=== PATIENT | male | born 1970 | race Caucasian/White ===

== ENCOUNTER 2019-05-15 19:42 | Inpatient (IN) | payer MEDICAID, MEDICARE ==
[~2019-05-15] VITALS: Ht 182.9 cm; Wt 143.7 kg
[2019-05-15] MEDS ORDERED: NS IV ONE (20:00)
[2019-05-15] MEDS ORDERED: DILUENT IV ONE (20:00)
[2019-05-15] MEDS ORDERED: ACETAMINOPHEN 325 MG TAB PO ONE (20:00)
[2019-05-15] MEDS ORDERED: ONDANSETRON 4MG/2ML VIAL (J2405) IV ONE (20:00)
[2019-05-15 20:22] LABS: BASO # 0.1 10^3/uL (0.0-0.2); BASO % 0.3 % (0.0-1.0); EOS # 0.1 10^3/uL (0.0-0.50); EOS % 0.3 % (0.0-3.0); HEMATOCRIT 46.5 % (42.0-52.0); LYMPH # 1.2 10^3/uL (1.5-4.5); LYMPH % 5.4 % (24.0-44.0); MEAN CORPUSCULAR HGB CONC 32.3 g/dl (32.0-36.5); MEAN CORPUSCULAR VOLUME 89.8 fl (80.0-96.0); MONO # 1.1 10^3/uL (0.0-0.8); MONO % 4.6 % (0.0-5.0); NEUTROPHILS # 20.2 10^3/uL (1.8-7.7); NEUTROPHILS % 88.8 % (36.0-66.0); PLATELET COUNT, AUTOMATED 298 10^3/uL (150-450); RED BLOOD COUNT 5.18 10^6/uL (4.30-6.10); WHITE BLOOD COUNT 22.8 10^3/uL (4.0-10.0)
[2019-05-15 20:36] LABS: ALBUMIN 3.8 GM/DL (3.2-5.2); ALT/SGPT 25 U/L (12-78); BILIRUBIN,DIRECT < 0.1 MG/DL (0.0-0.2); BILIRUBIN,TOTAL 0.3 MG/DL (0.2-1.0); TOTAL PROTEIN 7.8 GM/DL (6.4-8.2)
[2019-05-15 20:59] LABS: APPEARANCE, URINE CLEAR (CLEAR); BACTERIA, URINE AUTO NEGATIVE (NEGATIVE); BILIRUBIN, URINE AUTO NEGATIVE (NEGATIVE); BLOOD, URINE BLOOD 1+ (NEGATIVE); COLOR, URINE YELLOW (YELLOW); GLUCOSE, URINE (UA) AUTO NEGATIVE (NEGATIVE); KETONE, URINE AUTO NEGATIVE (NEGATIVE); LEUKOCYTE ESTERASE, URINE AUTO NEGATIVE (NEGATIVE); MUCUS, URINE SMALL (NEGATIVE); NITRITE, URINE AUTO NEGATIVE (NEGATIVE); PROTEIN, URINE AUTO NEGATIVE (NEGATIVE); RBC, URINE AUTO 4 /HPF (0-3); SPECIFIC GRAVITY URINE AUTO 1.015 (1.002-1.035); SQUAMOUS EPITHELIAL CELL UR AU 0 /HPF (0-6); UROBILINOGEN, URINE AUTO 0.2 mg/dL (0.0-2.0); WBC, URINE AUTO 2 /HPF (0-3)
[2019-05-15] MEDS: DOCUSATE SODIUM 100 MG CAP PO SCH (21:00)
[2019-05-15] MEDS ORDERED: PIPERACILLIN/TAZOBACTAM SOD 3.375 GM in D5W MINI-BAG PLUS 50 ML IV ONE (21:15)
[2019-05-15] MEDS ORDERED: ISOVUE-370 76% 100ML VIAL (Q9967) As Ordered ONE (22:02)
[2019-05-15] MEDS ORDERED: VANCOMYCIN HCL 1,000 MG, VIAL MATE ADAPTER 1 EACH in D5W 250 ML IV ONE (23:00)
[2019-05-15] MEDS ORDERED: ACET1TAB55 PO (23:07)
--- NOTE | 2019-05-15 23:47 | REPVR ---
EXAM: CT Abdomen and Pelvis With Contrast EXAM DATE/TIME: 05/15/2019 10:11 PM CLINICAL HISTORY: 48 years old, male; Abdominal pain; Generalized; Additional info: Fever, abd pain, eval for appy TECHNIQUE: Imaging protocol: Axial computed tomography images of the abdomen and pelvis with intravenous contrast. Coronal and sagittal reformatted images were created and reviewed. Radiation optimization: All CT scans at this facility use at least one of these dose optimization techniques: automated exposure control; mA and/or kV adjustment per patient size (includes targeted exams where dose is matched to clinical indication); or iterative reconstruction. Contrast material: ISOVUE 370;Contrast volume: 100 ml;Contrast route: IV; COMPARISON: CT ABD PELVIS W/O CONTRAST 12/20/2013 3:45 PM FINDINGS: Liver: Normal. No mass. Gallbladder and bile ducts: Normal. No calcified stones. No ductal dilation. Pancreas: Normal. No ductal dilation. Spleen: Normal. No splenomegaly. Adrenals: Normal. No mass. Kidneys and ureters: Normal. No hydronephrosis. Stomach and bowel: Scattered colonic diverticula without CT evidence of diverticulitis. No bowel dilatation or obstruction. Appendix: Normal appendix. Intraperitoneal space: Unremarkable. Vasculature: Normal. No abdominal aortic aneurysm. Lymph nodes: Multiple enlarged bilateral inguinal lymph nodes measuring up to 14 mm. Findings may represent inflammation versus infection. Bladder: Unremarkable as visualized. Reproductive: Unremarkable as visualized. Bones/joints: 6 lumbar vertebra with sacralization of L6. Bilateral pars interarticularis defects at L4 with mild anterolisthesis of L4 on L5 with mild central spinal canal stenosis and severe bilateral neural foraminal narrowing with possible impingement on the exiting bilateral nerve root she did. Soft tissues: Bilateral fat containing inguinal hernias. IMPRESSION: Normal appendix. Multiple enlarged bilateral inguinal lymph nodes measuring up to 14 mm. Findings may represent inflammation versus infection. Electronically signed by: Perla Norman On 05/15/2019 23:47:13 PM
[2019-05-16] MEDS ORDERED: NICOTINE POLACRILEX 2 MG GUM PO ONE
[2019-05-16] MEDS ORDERED: NICOTINE 21MG/24HR 1 EA TRANSDERMAL TD ONE
[2019-05-16] MEDS ORDERED: ACETAMINOPHEN TAB 650MG DOSE (2X325MG) PO PRN (01:15)
--- NOTE | 2019-05-16 01:40 | HPEPDOC ---
General Date of Admission 05/16/19 Date of Service: May 16, 2019 Chief Complaint The patient is a 48-year-old male admitted with a reason for visit of Abdominal Pain. Source: Patient History of Present Illness This is a 48 yo male with pmhx of htn and prediabetes which were dx last year, but patient has been none compliant with meds or follow up, who started having subjective fever today with nausea and dry heaves , as well as RUQ pain. Patient syncopized 2 days ago, but said he doesn't remember what happened. Currently patient said his abd pain and nausea have subsided. Patient has a burn from a muffler on his left wrist a few weeks ago which has been healing well. He also has erythema on his left leg which seems to be new, but patient doesn't remember when it started. Patient said he noticed he started a dry cough since yesterday as well. ROS - all 14 point ros negative except for what's stated in hpi Pmhx - htn and prediabetes social - smokes 1ppd for >40 yrs, smokes marijuana occasionally , used to use iv heroin- last use was 1 yr ago, denied drinking etoh surgical hx - none allergies - none home meds - none Physical exam Gen - Physical exam Gen: NAD, obese HEENT: normocephalic, atraumatic, no discharge from ears or nose, no orop haryngeal erythema or exudate, neck is supple, no lymphadenopathy, trachea midline CVS: RRR, normal S1n S2, no murmur, rubs, or gallops, ?nonpitting edema in legs, no jvd Resp: LCTAB, but decreased breath sounds in the left lower lung field, no rhonchi, wheezes or crackles Abd : soft nontender, normal bowel sounds, no rebound tenderness or guarding, obese abd , no roper sign or cva tenderness MSK: right leg erythema, warmth and swelling, no calf tenderness, full range of motion, strength 5/5, left arm burnt wound- healing, some erythema and warmth, but no tenderness. Neuro: AOAx3, no confusion, no focal deficit Psych: normal mood and affect, good judgment Assessment and plan Sepsis possibly 2/2 cellulitis -vitals signs are stable -ct abd did not show any sign of infection -s/p vanc and zosyn in ed -will c/w zosyn and vanc for now and can de-escalate when necessary. -f/u blood and Ucx -f/u cxr -f/u bmp, lactic acid and procal stat htn - not on meds - c/w monitor vital signs -vital signs q4h Prediabetes - f/u hba1c dvt ppx DNR/DNI - pt has molst form to fill, from home , no svc Home Medications Scheduled PRN Acetaminophen (Acetaminophen) 325 Mg Tablet, 325 MG PO Q4-6HP PRN for pain or fever, (Reported) Allergies Coded Allergies: No Known Allergies (Unverified , 05/15/19) A-FIB/CHADSVASC A-FIB History Current/History of A-Fib/PAF?: No Current PO Anticoag Therapy: No Age/Risk Factor Scoring CHADSVASC: CHADSVASC Response (Comments) Value Age Risk Factor Age < 65 years old 0 Gender Risk Factor Female 1 Hx of CHF No 0 Hx of HTN No 0 Hx of Stroke/TIA/or VTE No 0 Hx of Diabetes No 0 Hx of Vascular Disease No 0 Total 1 Treatment Treatment ordered: NONE Reason Anticoagulant not given: Not indicated/[id number] Vital Signs Vital Signs Date Time Temp Pulse Resp B/P (MAP) Pulse Ox O2 Delivery O2 Flow Rate FiO2 05/16/19 01:02 85 20 169/80 (109) 99 Room Air 05/15/19 23:37 98.8 Laboratory Data Labs 24H Laboratory Tests 2 05/15/19 20:01: Immature Granulocyte % (Auto) 0.6, White Blood Count 22.8H, Red Blood Count 5.18, Hemoglobin 15.0, Hematocrit 46.5, Mean Corpuscular Volume 89.8, Mean Corpuscular Hemoglobin 29.0, Mean Corpuscular Hemoglobin Concent 32.3, Red Cell Distribution Width 13.6, Platelet Count 298, Neutrophils (%) (Auto) 88.8H, Lymphocytes (%) (Auto) 5.4L, Monocytes (%) (Auto) 4.6, Eosinophils (%) (Auto) 0.3, Basophils (%) (Auto) 0.3, Neutrophils # (Auto) 20.2H, Lymphocytes # (Auto) 1.2L, Monocytes # (Auto) 1.1H, Eosinophils # (Auto) 0.1, Basophils # (Auto) 0.1, Nucleated Red Blood Cells % (auto) 0.0, Aspartate Amino Transf (AST/SGOT) 15, Alanine Aminotransferase (ALT/SGPT) 25, Alkaline Phosphatase 138H, Total Bilirubin 0.3, Direct Bilirubin < 0.1, Total Protein 7.8, Albumin 3.8, Albumin/Globulin Ratio 0.95L 05/15/19 20:02: Bedside Glucose (Misc Panel) 155H 05/15/19 20:16: POC Lactate (Misc Panel) 1.78 05/15/19 20:20: Urine Appearance CLEAR, Urine Color YELLOW, Urine pH 5.0, Urine Specific [place] 1.015, Urine Protein NEGATIVE, Urine Glucose (UA) NEGATIVE, Urine Ketones NEGATIVE, Urine Urobilinogen 0.2, Urine Bilirubin NEGATIVE, Urine Leukocyte Esterase NEGATIVE, Urine Blood 1+H, Urine Nitrite NEGATIVE, Urine WBC (Auto) 2, Urine RBC (Auto) 4H, Urine Hyaline Casts (Auto) 0, Urine Bacteria (Auto) NEGATIVE, Urine Squamous Epithelial Cells 0, Urine Mucus (Auto) SMALL, Urine Sperm (Auto) 05/15/19 20:22: POC Glucose (Misc Panel) 153H, POC Sodium (Misc Panel) 135L, POC Potassium (Misc Panel) 4.1, POC Chloride (Misc Panel) 101, POC Total CO2 (Misc Panel) 23.0, POC Blood Urea Nitrogen (Misc Panel 7L, POC Ionized Calcium (Misc Panel) 4.5, POC Creatinine (Misc Panel) 0.9, POC Hematocrit (Misc Panel) 48.0 CBC/BMP Laboratory Tests 05/15/19 20:01 Red Blood Count 5.18, Mean Corpuscular Volume 89.8, Mean Corpuscular Hemoglobin 29.0, Mean Corpuscular Hemoglobin Concent 32.3, Red Cell Distribution Width 13.6, Neutrophils (%) (Auto) 88.8 H, Lymphocytes (%) (Auto) 5.4 L, Monocytes (%) (Auto) 4.6, Eosinophils (%) (Auto) 0.3, Basophils (%) (Auto) 0.3, Neutrophils # (Auto) 20.2 H, Lymphocytes # (Auto) 1.2 L, Monocytes # (Auto) 1.1 H, Eosinophils # (Auto) 0.1, Basophils # (Auto) 0.1 Microbiology Microbiology 05/15/19 Blood Culture, Received Pending 05/15/19 Blood Culture, Received Pending 05/15/19 Urine Culture, Received Pending Plan / VTE VTE Prophylaxis Ordered?: Yes FREDY ARRIOLA MD May 16, 2019 01:40
[2019-05-16 02:39] LABS: BLOOD UREA NITROGEN 8 MG/DL (7-18); GLUCOSE, FASTING 147 MG/DL (70-100)
[2019-05-16 02:40] LABS: CALCIUM LEVEL 9.2 MG/DL (8.5-10.1); CARBON DIOXIDE LEVEL 27 MEQ/L (21-32); CHLORIDE LEVEL 104 MEQ/L (98-107); CREATININE FOR GFR 1.06 MG/DL (0.70-1.30); GLOMERULAR FILTRATION RATE > 60.0 (>60); POTASSIUM SERUM 4.3 MEQ/L (3.5-5.1); SODIUM LEVEL 138 MEQ/L (136-145)
[2019-05-16 03:25] VITALS: BP 148/70
[2019-05-16] MEDS: VANCOMYCIN HCL 1,000 MG, VIAL MATE ADAPTER 1 EACH in D5W 250 ML IV SCH ×2 (03:59→08:54)
[2019-05-16] MEDS ORDERED: PIPERACILLIN/TAZOBACTAM SOD 3.375 GM in D5W MINI-BAG PLUS 50 ML IV SCH (04:00)
[2019-05-16] MEDS ORDERED: HEPARIN SOD (PORCINE) 5000 UNITS/ML VIAL SC SCH (06:00)
[2019-05-16 06:18] LABS: HEMATOCRIT 43.6 % (42.0-52.0); HEMOGLOBIN 13.9 g/dl (13.5-17.5); MEAN CORPUSCULAR HEMOGLOBIN 29.3 pg (27.0-33.0); MEAN CORPUSCULAR HGB CONC 31.9 g/dl (32.0-36.5); MEAN CORPUSCULAR VOLUME 91.8 fl (80.0-96.0); PLATELET COUNT, AUTOMATED 279 10^3/uL (150-450); RED BLOOD COUNT 4.75 10^6/uL (4.30-6.10); WHITE BLOOD COUNT 16.2 10^3/uL (4.0-10.0)
[2019-05-16 06:34] LABS: HEMOGLOBIN A1c 8.2 %
[2019-05-16 06:45] LABS: ALBUMIN 3.3 GM/DL (3.2-5.2); ALT/SGPT 28 U/L (12-78); BILIRUBIN,TOTAL 0.2 MG/DL (0.2-1.0); BLOOD UREA NITROGEN 7 MG/DL (7-18); CALCIUM LEVEL 8.7 MG/DL (8.5-10.1); CARBON DIOXIDE LEVEL 29 MEQ/L (21-32); CHLORIDE LEVEL 106 MEQ/L (98-107); CREATININE FOR GFR 0.94 MG/DL (0.70-1.30); GLOMERULAR FILTRATION RATE > 60.0 (>60); GLUCOSE, FASTING 133 MG/DL (70-100); MAGNESIUM LEVEL 2.2 MG/DL (1.8-2.4); POTASSIUM SERUM 3.8 MEQ/L (3.5-5.1); SODIUM LEVEL 139 MEQ/L (136-145); TOTAL PROTEIN 7.3 GM/DL (6.4-8.2)
--- NOTE | 2019-05-16 07:32 | REP ---
Clinical: Sepsis. Technique: PA and lateral. Comparison: 02/03/2010. Findings: Mediastinum and cardiac silhouette are stable. Lung ravi demonstrate coarsened interstitial markings without focal consolidation, effusion, or pneumothorax. Skeletal structures are intact. Impression: Cannot exclude mild bronchitis. No focal consolidation or effusion. Electronically Signed by Angel Luis Najera MD 05/16/2019 07:24 A
[2019-05-16 08:00] VITALS: BP 142/64
[2019-05-16] MEDS: DOCUSATE SODIUM 100 MG CAP PO SCH (09:00)
--- NOTE | 2019-06-06 23:53 | DS.PDOC ---
Discharge Summary General Date of Admission May 16, 2019 at 01:02 Date of Discharge 05/17/19 Discharge Summary PROCEDURES PERFORMED DURING STAY: [None]. ADMITTING DIAGNOSES: 1. [left leg cellulitis]. DISCHARGE DIAGNOSES: 1. [left leg cellulitis, hypertension, diabetes mellitus type 2]. COMPLICATIONS/CHIEF COMPLAINT: Abdominal Pain,Fever,Leukocytosis. HISTORY OF PRESENT ILLNESS: [This is a 48 yo male with pmhx of htn and prediabetes which were dx last year, but patient has been none compliant with meds or follow up, who started having subjective fever today with nausea and dry heaves , as well as RUQ pain. Patient syncopized 2 days ago, but said he doesn't remember what happened. Currently patient said his abd pain and nausea have subsided. Patient has a burn from a muffler on his left wrist a few weeks ago which has been healing well. He also has erythema on his left leg which seems to be new, but patient doesn't remember when it started. Patient said he noticed he started a dry cough since yesterday as well. ]. HOSPITAL COURSE: Patient was admitted for left leg cellulitis and treatment of hypertension and DM2. Patient left AMA on 05/17/19. DISCHARGE MEDICATIONS: Please see below. ALLERGIES: Please see below. LABORATORY DATA: Please see below. IMAGING: [ NAME: YORDY MIGUEL DATE OF : 1970 AGE: 48 SEX: M REPORT #: [id number] ROOM: [facility] TECHNOLOGIST: [place] [id number] DOCTOR: FREDY ARRIOLA MD Ordered for Date&Time: 05/16/19 0151 cc: [~ rep ct ivnm] Service Date&Time: 05/16/19 0204 EXAMINATION REQUESTED: Chest, 2 view PA, Lat REASON FOR PATIENT VISIT: ABDOMINAL PAIN,FEVER,LEUKOCYTOSIS REASON FOR EXAM/COMMENT: sepsis Clinical: Sepsis. Technique: PA and lateral. Comparison: 02/03/2010. Findings: Mediastinum and cardiac silhouette are stable. Lung ravi demonstrate coarsened interstitial markings without focal consolidation, effusion, or pneumothorax. Skeletal structures are intact. Impression: Cannot exclude mild bronchitis. No focal consolidation or effusion. Electronically Signed by Angel Luis Najera MD 05/16/2019 07:24 A DD: Angel Luis Najera MD 05/16/19719 DT: Dieter 05/16/19723 DS: JANE 05/16/1972305/16/19723 NAME: YORDY MIGUEL DATE OF : 1970 BUSINESS NUMBER: [id number] AGE: 48 SEX: M REPORT #: [id number] ROOM: ED TECHNOLOGIST: BILLY DOCTOR: PATRICIA BRANCH NEON TECHNICIAN Ordered for Date&Time: 05/15/192112 cc: [~ rep ct ivnm] Service Date&Time: 05/15/192210 EXAMINATION REQUESTED: CT ABD/PEL W/IV CONTRAST ONLY REASON FOR PATIENT VISIT: ABDOMINAL PAIN REASON FOR EXAMINATION: fever, abd pain, eval for appy EXAM: CT Abdomen and Pelvis With Contrast EXAM DATE/TIME: 05/15/2019 10:11 PM CLINICAL HISTORY: 48 years old, male; Abdominal pain; Generalized; Additional info: Fever, abd pain, eval for appy TECHNIQUE: Imaging protocol: Axial computed tomography images of the abdomen and pelvis with intravenous contrast. Coronal and sagittal reformatted images were created and reviewed. Radiation optimization: All CT scans at this facility use at least one of these dose optimization techniques: automated exposure control; mA and/or kV adjustment per patient size (includes targeted exams where dose is matched to clinical indication); or iterative reconstruction. Contrast material: ISOVUE 370;Contrast volume: 100 ml;Contrast route: IV; COMPARISON: CT ABD PELVIS W/O CONTRAST 12/20/2013 3:45 PM FINDINGS: Liver: Normal. No mass. Gallbladder and bile ducts: Normal. No calcified stones. No ductal dilation. Pancreas: Normal. No ductal dilation. Spleen: Normal. No splenomegaly. Adrenals: Normal. No mass. Kidneys and ureters: Normal. No hydronephrosis. Stomach and bowel: Scattered colonic diverticula without CT evidence of diverticulitis. No bowel dilatation or obstruction. Appendix: Normal appendix. Intraperitoneal space: Unremarkable. Vasculature: Normal. No abdominal aortic aneurysm. Lymph nodes: Multiple enlarged bilateral inguinal lymph nodes measuring up to 14 mm. Findings may represent inflammation versus infection. Bladder: Unremarkable as visualized. Reproductive: Unremarkable as visualized. Bones/joints: 6 lumbar vertebra with sacralization of L6. Bilateral pars interarticularis defects at L4 with mild anterolisthesis of L4 on L5 with mild central spinal canal stenosis and severe bilateral neural foraminal narrowing with possible impingement on the exiting bilateral nerve root she did. Soft tissues: Bilateral fat containing inguinal hernias. IMPRESSION: Normal appendix. Multiple enlarged bilateral inguinal lymph nodes measuring up to 14 mm. Findings may represent inflammation versus infection. Electronically signed by: James Norman On 05/15/2019 23:47:13 PM DD: JAMES NORMAN MD 05/15/19 2215 DT: CHELSEY 05/15/192346 DS: AAKASH 05/15/192346 ] PROGNOSIS: [guarded] ACTIVITY: [As tolerated]. DIET: [diabetic diet ] DISCHARGE PLAN: [pt left AMA] DISPOSITION: Against Medical Advice. DISCHARGE INSTRUCTIONS: 1. [f/u with pmd in 1-2 weeks]. DISCHARGE CONDITION: [Stable]. TIME SPENT ON DISCHARGE: Greater than [5] minutes. Discharge Medications Scheduled PRN Acetaminophen (Acetaminophen) 325 Mg Tablet, 325 MG PO Q4-6HP PRN for pain or fever, (Reported) Allergies Coded Allergies: No Known Allergies (Unverified , 05/15/19) FREDY ARRIOLA MD Jun 06, 2019 23:50
== END 2019-05-16 10:44 | disposition left against medical advice (07) | DRG 603 ==
LOC: M ED 19:42 → M ED INP 05-16 01:02 → M PCU 05-16 03:18
PROVIDERS: ADMIT Internal Medicine; ATTEND Internal Medicine
DX: L03.116 Cellulitis of left lower limb (principal); R10.11 Right upper quadrant pain; R11.2 Nausea with vomiting, unspecified; R73.03 Prediabetes; I10 Essential (primary) hypertension; F17.200 Nicotine dependence, unspecified, uncomplicated; E66.9 Obesity, unspecified; Z66 Do not resuscitate

== ENCOUNTER → 2020-01-29 | Outpatient (REF) ==
[~2020-01-29] MED LIST: ACET1TAB55 PO
== END ==
LOC: M LAB LCGH 17:42
PROVIDERS: ATTEND Internal Medicine
DX: E87.1 Hypo-osmolality and hyponatremia (principal)

== ENCOUNTER 2021-01-08 14:52 | Observation (INO) | payer MEDICARE ==
[~2021-01-08] VITALS: Ht 182.9 cm; Wt 121.9 kg
[2021-01-08] MEDS ORDERED: GLUCOSE 4GM CHEW TABLET PO PRN (16:40)
[2021-01-08] MEDS ORDERED: GLUCAGON INJ 1MG VIAL SC PRN (16:40)
[2021-01-08] MEDS ORDERED: MOM 30ML SUSPENSION UDC PO PRN (16:40)
[2021-01-08] MEDS ORDERED: ACETAMINOPHEN TAB 650MG DOSE (2X325MG) PO PRN (16:40)
[2021-01-08] MEDS ORDERED: DEXTROSE 50% 50 ML SYRINGE IV PRN (16:40)
[2021-01-08] MEDS ORDERED: NICOTINE 21MG/24HR 1 EA TRANSDERMAL TD PRN (16:55)
[2021-01-08 17:01] VITALS: BP 119/81
[2021-01-08] MEDS: HumaLOG INSULIN (NovoLOG) PER UNIT SC SCH (17:26)
--- NOTE | 2021-01-08 17:28 | REP ---
INDICATION: Leukocytosis. COMPARISON: 05/16/2019. TECHNIQUE: SINGLE PORTABLE AP VIEW OF THE CHEST WAS PERFORMED. FINDINGS: THERE IS NO ACUTE INFILTRATE OR PULMONARY EDEMA. LUNGS ARE CLEAR. HEART IS NOT SIGNIFICANTLY ENLARGED. MEDIASTINAL SILHOUETTE IS UNREMARKABLE. THE VISUALIZED OSSEOUS STRUCTURES ARE INTACT. IMPRESSION: NO ACUTE PULMONARY DISEASE. <Electronically signed by Rico Boles > 01/08/21 1367
[2021-01-08] MEDS: NS 1,000 ML IV SCH (17:31)
--- NOTE | 2021-01-08 17:35 | HPEPDOC ---
[facility] Medical History & Physical Date of Admission Jan 08, 2021 Date of Service: Jan 08, 2021 History and Physical Chief complaint: Transferred from [facility] for an elevated glucose / thought to be DKA History of present illness: Patient is a 50-year-old male with past medical history of hypertension, diabetes, noncompliance with medications who presented as a trans gigi from [facility] because of elevated glucose. Patient reported that yesterday he was feeling dizzy, fatigued had some nausea and vomiting and subsequently checked his glucose levels which are noted to be elevated. Patient reported that he drank chocolate milk and went to bed. Upon waking up this morning patient reported that continued to feel weak and fatigued reported nausea without any vomiting. His glucose again was noted to be elevated and his sister had advised him to go to the ER for further evaluation. Upon arrival to [facility] patient had lab work completed that revealed an elevated glucose without a significant anion gap or reduction in bicarbonate. Patient was given IV fluids, push of 10 units of insulin IV and started on insulin drip. Hospitalist service contacted at [facility] case was discussed. Patient was transferred for the potential need of ICU level care. Upon arrival, patient reports he is not experience any nausea, vomiting, chest pain, shortness of breath, palpitations, abdominal pain, constipation, diarrhea, or discomfort with urination. Reports his last bowel movement was 1 day prior. Reports his appetite is all right and denies any changes in his weight. Past Medical History: Non-compliance with medications HTN IDDM2 Gout GERD Past Surgical History: Denies any prior surgeries Allergies: See below Medications: See below Family History: - No history of malignancies Social History: - Patient reports that he is a smoker of 30 years at 1-2 packs per day for the social use of alcohol and occasional use of marijuana - Denies recent travel or sick contacts - Lives with sister and her boyfriend - Occupation; patient works on the farm and in construction Review of Systems: 10 point review of systems complete, all negative otherwise stated in HPI Physical exam: - Vitals: BP [119/81], HR [87], RR [17], Sat [94%RA] - General: Sitting up in bed, No acute distress, Speaking in full sentences, AAOx3 - HEENT: NC, AT, PERRLA - CVS: RRR, +S1S2 - Lungs: Fair air entry bilaterally, No appreciable wheezing / rales / rhonchi - Abdomen: Soft, Non-distended, Non-tender - Extremities: No lower extremity edema, No calf tenderness - Neuro: No focal motor or sensory deficit - Skin: No visible rashes Labs: See below Imaging: CXR 01/08: NO ACUTE PULMONARY DISEASE. EKG: See below Assessment and Plan: Hyperglycemia - likely 2/2 poorly controlled IDDM2 2/2 non-compliance with medications, less likely 2/2 DKA - Patient has reported noncompliance with medications over the last 7 months - Reported that he felt that they were not helping him so he stopped the use - Presented with dizziness and nausea - Lab work or [facility] was reviewed. No evidence of suppressed CO2 or significant lactic acidosis - Will repeat lab work here; CBC / CMP / Mag / Cardiac markers / Lactic acid / Acetone / UA / Blood cultures / Procalcitonin / Blood cultures / Osmolality - Will likely start IV fluids once labs result - Will start ISS for now; will start insulin drip if lab work reveals evidence of DKA Elevated Lipase at [facility] - Currently patient does not have any abdominal pain, is not experiencing any nausea or vomiting - Will repeat Lipase HTN - BP well controlled currently - Will continue to monitor Gout - Currently not on medications GERD - Denies any symptoms - Currently not on medications DVT prophylaxis - Will start Heparin Laboratory Data Labs 24H Laboratory Tests 2 01/08/21 16:48: Bedside Glucose (Misc Panel) 401H Home Medications Scheduled PRN Acetaminophen (Acetaminophen) 325 Mg Tablet, 325 MG PO Q4-6HP PRN for pain or fe chaya Allergies Coded Allergies: No Known Allergies (Unverified , 05/15/19) AUDELIA CRAMER MD Jan 08, 2021 17:35
[2021-01-08 18:04] LABS: BASO # 0.1 10^3/uL (0.0-0.2); BASO % 0.5 % (0.0-1.0); EOS # 0.2 10^3/uL (0.0-0.5); EOS % 1.9 % (0.0-3.0); HEMATOCRIT 44.9 % (42.0-52.0); HEMOGLOBIN 15.3 g/dl (13.5-17.5); LYMPH # 3.2 10^3/uL (1.5-5.0); LYMPH % 25.7 % (24.0-44.0); MEAN CORPUSCULAR HEMOGLOBIN 29.4 pg (27.0-33.0); MEAN CORPUSCULAR HGB CONC 34.1 g/dl (32.0-36.5); MEAN CORPUSCULAR VOLUME 86.3 fl (80.0-96.0); MONO # 0.9 10^3/uL (0.0-0.8); MONO % 7.2 % (2.0-8.0); NEUTROPHILS % 64.2 % (36.0-66.0); PLATELET COUNT, AUTOMATED 314 10^3/uL (150-450); WHITE BLOOD COUNT 12.4 10^3/uL (4.0-10.0)
[2021-01-08 18:12] LABS: HEMOGLOBIN A1c 12.7 %
[2021-01-08 18:15] LABS: ALBUMIN 3.5 GM/DL (3.2-5.2); ALT/SGPT 50 U/L (12-78); AMYLASE 98 U/L (25-115); BILIRUBIN,TOTAL 0.3 MG/DL (0.2-1.0); BLOOD UREA NITROGEN 19 MG/DL (7-18); CALCIUM LEVEL 9.6 MG/DL (8.5-10.1); CARBON DIOXIDE LEVEL 27 MEQ/L (21-32); CHLORIDE LEVEL 96 MEQ/L (98-107); CK-MB VALUE MASS 3.7 NG/ML (<3.6); CPK CREATINE PHOSPHOKINASE 280 U/L (39-308); CREATININE FOR GFR 0.85 MG/DL (0.70-1.30); GLOMERULAR FILTRATION RATE > 60.0 (>60); GLUCOSE, FASTING 396 MG/DL (70-100); LIPASE 966 U/L (73-393); MAGNESIUM LEVEL 1.8 MG/DL (1.8-2.4); MB/CK RELATIVE INDEX 1.32 (< OR =4); POTASSIUM SERUM 3.8 MEQ/L (3.5-5.1); SODIUM LEVEL 132 MEQ/L (136-145); TOTAL PROTEIN 6.7 GM/DL (6.4-8.2); TROPONIN I < 0.02 NG/ML (< 0.10)
[2021-01-08] MEDS ORDERED: ISOVUE-370 76% 100ML VIAL As Ordered ONE (18:36)
[2021-01-08 19:12] LABS: CHOLESTEROL LEVEL 222 MG/DL (<200); CHOLESTEROL RISK RATIO 8.222 (<5); HDL CHOLESTEROL 27 MG/DL (>40); NON-HDL-C 195 MG/DL; TRIGLYCERIDES LEVEL 668 MG/DL (<150)
[2021-01-08] MEDS ORDERED: ATORVASTATIN 20 MG TAB PO ONE (19:25)
--- NOTE | 2021-01-08 19:40 | REPVR ---
PROCEDURE INFORMATION: Exam: CT Abdomen And Pelvis With Contrast Exam date and time: 01/08/2021 6:51 PM Age: 50 years old Clinical indication: Abnormal findings; Abnormal lab test; Elevated lipase; Additional info: Elevated lipase TECHNIQUE: Imaging protocol: Computed tomography of the abdomen and pelvis with contrast. Radiation optimization: All CT scans at this facility use at least one of these dose optimization techniques: automated exposure control; mA and/or kV adjustment per patient size (includes targeted exams where dose is matched to clinical indication); or iterative reconstruction. Contrast material: ISOVUE 370; Contrast volume: 100 ml; Contrast route: INTRAVENOUS (IV); COMPARISON: CT ABD/PEL W/IV CONTRAST ONLY 05/15/2019 10:07 PM FINDINGS: Liver: Hepatic steatosis. Gallbladder and bile ducts: Suspect cholelithiasis. Pancreas: Normal. No ductal dilation. Spleen: Normal. No splenomegaly. Adrenal glands: 12 mm right adrenal gland nodule, indeterminate. Kidneys and ureters: Normal. No hydronephrosis. Stomach and bowel: Unremarkable. No obstruction. No mucosal thickening. Appendix: Normal appendix. Intraperitoneal space: Unremarkable. No free air. No significant fluid collection. Vasculature: Unremarkable. No abdominal aortic aneurysm. Lymph nodes: Unremarkable. No enlarged lymph nodes. Urinary bladder: Unremarkable as visualized. Reproductive: Unremarkable as visualized. Bones/joints: There are degenerative changes involving the spine. There are bilateral L4 pars defects. Soft tissues: There are bilateral fat containing inguinal hernias. IMPRESSION: 1. No acute abnormality. 2. 1.2 cm right adrenal gland nodule, indeterminate. Nonemergent adrenal protocol CT or MRI may be considered. Electronically signed by: Raymond Reilly On 01/08/2021 19:40:03 PM
[2021-01-08] MEDS ORDERED: HumaLOG INSULIN (NovoLOG) PER UNIT SC SCH (21:00)
[2021-01-08] MEDS: LEVEMIR (INSULIN DETEMIR) 1 UNITS/0.01ML SC SCH (21:08)
[2021-01-08] MEDS: DOCUSATE SODIUM 100MG CAPSULE PO SCH (21:08)
[2021-01-08] MEDS: HEPARIN SOD (PORCINE) 5000UNITS/ML 1ML VIAL/SYRINGE SC SCH (21:09)
[2021-01-08 22:00] VITALS: BP 138/87
[2021-01-09] MEDS: HEPARIN SOD (PORCINE) 5000UNITS/ML 1ML VIAL/SYRINGE SC SCH ×2 (05:59→12:30)
[2021-01-09] MEDS: NS 1,000 ML IV SCH (05:59)
[2021-01-09 06:00] VITALS: BP 132/85
[2021-01-09 06:51] LABS: BASO # 0.1 10^3/uL (0.0-0.2); BASO % 0.5 % (0.0-1.0); EOS # 0.3 10^3/uL (0.0-0.5); EOS % 3.1 % (0.0-3.0); HEMATOCRIT 44.1 % (42.0-52.0); HEMOGLOBIN 14.9 g/dl (13.5-17.5); LYMPH % 31.7 % (24.0-44.0); MEAN CORPUSCULAR HEMOGLOBIN 29.5 pg (27.0-33.0); MEAN CORPUSCULAR HGB CONC 33.8 g/dl (32.0-36.5); MEAN CORPUSCULAR VOLUME 87.3 fl (80.0-96.0); MONO # 0.7 10^3/uL (0.0-0.8); MONO % 6.8 % (2.0-8.0); NEUTROPHILS # 5.5 10^3/uL (1.5-8.5); NEUTROPHILS % 57.4 % (36.0-66.0); PLATELET COUNT, AUTOMATED 284 10^3/uL (150-450); RED BLOOD COUNT 5.05 10^6/uL (4.30-6.10); WHITE BLOOD COUNT 9.6 10^3/uL (4.0-10.0)
[2021-01-09 07:11] LABS: BLOOD UREA NITROGEN 17 MG/DL (7-18); CALCIUM LEVEL 8.5 MG/DL (8.5-10.1); CARBON DIOXIDE LEVEL 30 MEQ/L (21-32); CHLORIDE LEVEL 97 MEQ/L (98-107); CREATININE FOR GFR 0.85 MG/DL (0.70-1.30); GLOMERULAR FILTRATION RATE > 60.0 (>60); GLUCOSE, FASTING 382 MG/DL (70-100); MAGNESIUM LEVEL 1.7 MG/DL (1.8-2.4); POTASSIUM SERUM 4.1 MEQ/L (3.5-5.1); SODIUM LEVEL 134 MEQ/L (136-145)
[2021-01-09] MEDS: LEVEMIR (INSULIN DETEMIR) 1 UNITS/0.01ML SC SCH (08:01)
[2021-01-09] MEDS: HumaLOG INSULIN (NovoLOG) PER UNIT SC SCH ×2 (08:02→12:30)
[2021-01-09] MEDS: DOCUSATE SODIUM 100MG CAPSULE PO SCH (08:02)
[2021-01-09] MEDS ORDERED: MAG SULF 1GM/100ML (MAG RUN) 1 GM in IV 1 EA IV ONE (08:10)
[2021-01-09] MEDS ORDERED: LEVEMIR (INSULIN DETEMIR) 1 UNITS/0.01ML SC ONE (08:35)
[2021-01-09] MEDS ORDERED: ATORVASTATIN 20 MG TAB PO SCH (09:00)
[2021-01-09] MEDS ORDERED: GLUC1TES2 XX ×2 (09:30→12:15)
[2021-01-09] MEDS ORDERED: ATOR1TAB21 PO ×2 (09:30→12:14)
[2021-01-09] MEDS ORDERED: ALCOPAD25 TOP ×2 (09:30→12:15)
[2021-01-09] MEDS ORDERED: LISI2.5T2 PO ×2 (09:30→12:15)
[2021-01-09] MEDS ORDERED: METF-877 PO ×2 (09:30→12:15)
[2021-01-09] MEDS ORDERED: PEN1MIS21 SC ×2 (09:30→12:15)
[2021-01-09] MEDS ORDERED: LANC30MI XX ×2 (09:30→12:15)
[2021-01-09] MEDS ORDERED: BLOOKIT21 XX ×2 (09:30→12:15)
[2021-01-09] MEDS ORDERED: LANTINJ4 SC (09:30)
--- NOTE | 2021-01-09 10:18 | ECGEPIP ---
[facility] Test Date: 2021-01-08 Pat Name: YORDY MIGUEL Department: Room: [place] [address] Gender: Male Culinary Specialist: jason : 1970 Requested By: AUDELIA CRAMER Order Number: [id number] Reading MD: Jose A Chapman Measurements Intervals [place] Rate: 91 P: -69 AK: 98 QRS: 23 QRSD: 94 T: 28 QT: 350 QTc: 430 Interpretive Statements Unusual P axis and short AK, probable junctional tachycardia Q wave in lead III of undetermined significance Nonspecific T wave abnormality Comparison tracing not on file Electronically Signed on 01-09-2021 10:18:38 EDT by Jose A Chapman
--- NOTE | 2021-01-09 10:43 | DS.PDOC ---
Discharge Summary General Date of Admission Jan 08, 2021 at 16:37 Date of Discharge 01/09/2021 Discharge Summary PROCEDURES PERFORMED DURING STAY: [None]. ADMITTING DIAGNOSES / DISCHARGE DIAGNOSES: Hyperglycemia - likely 2/2 poorly controlled IDDM2 2/2 non-compliance with medications, less likely 2/2 DKA Elevated Lipase DLP HTN Gout GERD DVT prophylaxis COMPLICATIONS/CHIEF COMPLAINT: Hyperglycemia HISTORY OF PRESENT ILLNESS: Patient is a 50-year-old male with past medical history of hyp ertension, diabetes, noncompliance with medications who presented as a transfer from [facility] because of elevated glucose. Patient reported that yesterday he was feeling dizzy, fatigued had some nausea and vomiting and subsequently checked his glucose levels which are noted to be elevated. Patient reported that he drank chocolate milk and went to bed. Upon waking up this morning of 01/08, patient reported that continued to feel weak and fatigued reported nausea without any vomiting. His glucose again was noted to be elevated and his sister had advised him to go to the ER for further evaluation. Once at [facility] ER, patient had lab work completed that revealed an elevated glucose without a significant anion gap or reduction in bicarbonate. Patient was given IV fluids, push of 10 units of insulin IV and started on insulin drip. Hospitalist service was contacted at [facility] and case was discussed. Patient was transferred for the potential need of ICU level care. Upon arrival, patient reported he did not experience any nausea, vomiting, chest pain, shortness of breath, palpitations, abdominal pain, constipation, diarrhea, or discomfort with urination. Reports his last bowel movement was 1 day prior. Patient was seen and examined at the bedside. Currently reports that he feels fine. Denies any chest pain, shortness breath, palpitations. Has not experience any nausea, vomiting, abdominal pain, constipation, diarrhea. Denies any urinary discomfort. Reports that his feeling of weakness and fatigue has resolved. HOSPITAL COURSE: Hyperglycemia - likely 2/2 poorly controlled IDDM2 2/2 non-compliance with medications, less likely 2/2 DKA - Patient has reported noncompliance with medications over the last 7 months; has reported that he has lost insurance coverage but has now regained it - Reports resolution of weakness and fatigue - Glucose levels have improved - c/w Levemir and ISS; will increase dose of long acting insulin to 25 BID - Will provide metformin and long acting insulin coverage as an outpatient - Will have outpatient follow up with PCP within 7 days - Patient has improved faster than expected Elevated Lipase - Patient does not experience any symptoms including nausea, vomiting or abdominal discomfort - Imaging does not reflect any changes to suggest pancreatitis - s/p IV fluid hydration - Tolerating diet DLP - Cardiac risk profile noted - Will c/w Atorvastatin HTN - BP well controlled currently - Will start low dose Lisinopril for renal protection Gout - Currently not on medications GERD - Denies any symptoms - Currently not on medications DVT prophylaxis - c/w Heparin DISCHARGE MEDICATIONS: Please see below. ALLERGIES: Please see below. PHYSICAL EXAMINATION ON DISCHARGE: Vitals (See below) General: Sitting up in bed eating breakfast appears comfortable, no acute distress, AAOx3 HEENT: NC, AT CVS: +S1S2 Lungs: Fair air entry b/l, no appreciable wheezing, rhonchi or rales Abdomen: Soft, ND, NT Extremities: No evidence of edema, - Calf tenderness LABORATORY DATA: Please see below. IMAGING: CXR 01/08: NO ACUTE PULMONARY DISEASE. ACTIVITY: [As tolerated]. DISCHARGE PLAN: Please follow-up with primary care provider within the next 7 days Remain compliant with treatment plan and medications Return to the ER if you experience any problems DISPOSITION: Home DISCHARGE CONDITION: [Stable]. TIME SPENT ON DISCHARGE: 35 minutes. Vital Signs/I&Os Vital Signs Date Time Temp Pulse Resp B/P (MAP) Pulse Ox O2 Delivery O2 Flow Rate FiO2 01/09/21 06:00 98.1 83 18 132/85 (101) 98 Room Air I&O- Last 24 Hours up to 6 AM 01/09/21 06:00 Intake Total 1955 ml Output Total 700 ml Balance 1255 ml Laboratory Data Labs 24H Laboratory Tests 2 01/08/21 16:48: Bedside Glucose (Misc Panel) 401H 01/08/21 17:30: Immature Granulocyte % (Auto) 0.5, Neutrophils (%) (Auto) 64.2, Lymphocytes (%) (Auto) 25.7, Monocytes (%) (Auto) 7.2, Eosinophils (%) (Auto) 1.9, Basophils (%) (Auto) 0.5, Neutrophils # (Auto) 8.0, Lymphocytes # (Auto) 3.2, Monocytes # (Auto) 0.9H, Eosinophils # (Auto) 0.2, Basophils # (Auto) 0.1, Nucleated Red Blood Cells % (auto) 0.0, Anion Gap 9, Glomerular Filtration Rate > 60.0, Estimated Mean Plasma Glucose 318H, Hemoglobin A1c 12.7, Osmolality 298H, Lactic Acid Level 0.9, Calcium Level 9.6, Magnesium Level 1.8, Total Bilirubin 0.3, Aspartate Amino Transf (AST/SGOT) 19, Alanine Aminotransferase (ALT/SGPT) 50, Alkaline Phosphatase 207H, Total Creatine Kinase 280, Creatine Kinase MB 3.7H, Creatine Kinase MB Relative Index 1.32, Troponin I < 0.02, Total Protein 6.7, Al bumin 3.5, Albumin/Globulin Ratio 1.1, Triglycerides Level 668H, Total Cholesterol 222H, LDL Cholesterol , Non-HDL Cholesterol (LDL + VLDL) 195, Total HDL Cholesterol 27L, Cholesterol/HDL Ratio 8.222H, Amylase Level 98, Lipase 966H, Procalcitonin 0.14, B-Hydroxybutyrate 17.20H 01/08/21 18:47: Urine Color YELLOW, Urine Appearance CLEAR, Urine pH 5.0, Urine Specific [place] 1.040, Urine Protein NEGATIVE, Urine Glucose (UA) 3+H, Urine Ketones 1+H, Urine Blood NEGATIVE, Urine Nitrite NEGATIVE, Urine Bilirubin NEGATIVE, Urine Urobilinogen 0.2, Urine Leukocyte Esterase NEGATIVE, Urine WBC (Auto) 2, Urine RBC (Auto) 0, Urine Hyaline Casts (Auto) 0, Urine Bacteria (Auto) NEGATIVE, Urine Squamous Epithelial Cells 0, Urine Sperm (Auto) 01/08/21 20:15: Bedside Glucose (Misc Panel) 461H 01/09/21 06:19: Immature Granulocyte % (Auto) 0.5, Neutrophils (%) (Auto) 57.4, Lymphocytes (%) (Auto) 31.7, Monocytes (%) (Auto) 6.8, Eosinophils (%) (Auto) 3.1H, Basophils (%) (Auto) 0.5, Neutrophils # (Auto) 5.5, Lymphocytes # (Auto) 3.0, Monocytes # (Auto) 0.7, Eosinophils # (Auto) 0.3, Basophils # (Auto) 0.1, Nucleated Red Blood Cells % (auto) 0.0, Anion Gap 7L, Glomerular Filtration Rate > 60.0, Calcium Level 8.5, Magnesium Level 1.7L CBC/BMP Laboratory Tests 01/08/21 17:30 01/09/21 06:19 FSBS Laboratory Tests Test 01/08/21 16:48 01/08/21 20:15 Range/Units Bedside Glucose (Misc Panel) 401 461 70-105 MG/DL Microbiology Microbiology 01/08/21 Blood Culture, Received Pending 01/08/21 Blood Culture, Received Pending Discharge Medications Scheduled Atorvastatin Calcium (Atorvastatin Calcium) 20 Mg Tablet, 80 MG PO DAILY Blood Sugar Diagnostic (Advanced Glucose Test Strips) 1 Each Strip, 1 STRIP XX ASDIRECTED to check blood glucose twice daily Insulin Glargine,Hum.rec.anlog (Lantus Solostar) 100 Unit/1 Ml Insuln.pen, 25 UNIT SC BID VIAL = PEN 1 month supply Lisinopril (Lisinopril) 2.5 Mg Tablet, 1 TAB PO DAILY Metformin HCl (Metformin HCl) 1,000 Mg Tablet, 1 TAB PO BID Scheduled PRN Acetaminophen (Acetaminophen) 325 Mg Tablet, 325 MG PO Q4-6HP PRN for pain or fever, (Reported) Allergies Coded Allergies: No Known Allergies (Unverified , 05/15/19) AUDELIA CRAMER MD Jan 09, 2021 10:43
[2021-01-09] MEDS ORDERED: INSU100I28 SQ (12:15)
[2021-01-09] MEDS ORDERED: LEVEMIR (INSULIN DETEMIR) 1 UNITS/0.01ML SC SCH (21:00)
== END 2021-01-09 14:37 | disposition home or self-care (01) ==
LOC: INTOOBSV 16:37 → M ICU 16:37 → M MSPAV 18:20
PROVIDERS: ADMIT Internal Medicine; ATTEND Internal Medicine
DX: E11.65 Type 2 diabetes mellitus with hyperglycemia (principal); Z91.14 Patient's other noncompliance with medication regimen; R74.8 Abnormal levels of other serum enzymes; I10 Essential (primary) hypertension; E78.5 Hyperlipidemia, unspecified; M10.9 Gout, unspecified; K21.9 Gastro-esophageal reflux disease without esophagitis; Z79.899 Other long term (current) drug therapy; Z79.4 Long term (current) use of insulin; F17.210 Nicotine dependence, cigarettes, uncomplicated
CPT/HCPCS: 36415; 71045; 74177; 80048; 80053; 80061; 81001; 82010; 82150; 82550; 82553; 83036; 83605; 83690; 83735; 83930; 84145; 84484; 85025; 87040; 93005; 96372; G0378; J1644; J3475; Q9967